=== PATIENT | female | born 1990 | race Caucasian/White ===

== ENCOUNTER 2021-11-11 19:33 | Emergency (ER) | payer OTHER ==
[~2021-11-11] VITALS: Ht 162.6 cm; Wt 61.2 kg
--- NOTE | 2021-11-11 20:10 | NUR ---
TO ER BED 9. BIBS C/O "ALTITUDE SICKNESS" +MUSCLE WEAKNESS +NAUSEA +"TROUBLE THINKING". DENIES ANY CHEST PAIN. NOT IN RESPIRATORY DISTRESS. CONNECTED TO MONITOR. AWAITING MD OTTO
--- NOTE | 2021-11-11 20:26 | NUR ---
IV LINE ESTABLISHED, LAC 20G
[2021-11-11] MEDS ORDERED: MECLIZINE HCL 25 MG TABLET ONE (20:29)
[2021-11-11] MEDS ORDERED: IV NS 0.9% 1,000 ML BAG IV ONE (20:30)
[2021-11-11] MEDS ORDERED: MECLIZINE HCL 25 MG TABLET PO ONE (20:30)
--- NOTE | 2021-11-11 21:50 | NUR ---
Patient discharged to home in stable condition. Written and verbal after care instructions given. Patient verbalizes understanding of instruction.
[2021-11-11 21:59] VITALS: BP 110/76
== END 2021-11-11 21:59 | disposition home or self-care (01) ==
LOC: ER 19:42
DX: T75.3XXA Motion sickness, initial encounter (principal); R11.0 Nausea; Z88.8 Allergy status to other drugs, medicaments and biological substances; Z60.2 Problems related to living alone; Y92.810 Car as the place of occurrence of the external cause; Y99.8 Other external cause status
CPT/HCPCS: 96360; 99283; J7030; J8597